=== PATIENT | male | born 1945 | race Caucasian/White ===

== ENCOUNTER 2024-01-16 05:49 | Day surgery (SDC) | payer BC, OTHER ==
[~2024-01-16] VITALS: Ht 175.3 cm; Wt 54.4 kg
[2024-01-16] MEDS ORDERED: INDOMETHACIN 50 MG SUPP.RECT RC ONE (06:45)
[2024-01-16 07:02] LABS: BASOPHILS % (AUTO) 1.1 % (0.0-2.0); EOSINOPHILS # (AUTO) 0.2 K/uL (0.0-0.4); EOSINOPHILS % (AUTO) 5.4 % (0.0-4.0); HEMATOCRIT 42.7 % (36-54); HEMOGLOBIN 14.3 g/dL (14.0-18.0); LYMPHOCYTES # (AUTO) 0.7 K/uL (1.0-5.5); LYMPHOCYTES % (AUTO) 16.7 % (20.5-51.5); MEAN CORPUSCULAR HEMOGLOBIN 32 pg (27-31); MEAN CORPUSCULAR HGB CONC 33 % (32-36); MEAN CORPUSCULAR VOLUME 94 fL (79.0-98.0); MONOCYTES # (AUTO) 0.3 K/uL (0.0-1.0); MONOCYTES % (AUTO) 7.7 % (1.7-9.3); NEUTROPHILS % (AUTO) 69.1 % (40.0-70.0); PLATELET COUNT (AUTO) 247 K/uL (130-430); RED BLOOD CELL COUNT(AUTO) 4.53 MIL/uL (4.2-6.2); RED CELL DISTRIBUTION WIDTH 13.4 % (9.0-15.0); WHITE BLOOD COUNT (AUTO) 4.3 K/uL (4.8-10.8)
[2024-01-16 07:21] LABS: ALANINE AMINOTRANSFERASE 35 U/L (12-78); ALBUMIN 3.7 g/dL (3.4-4.8); ANION GAP 10 (5-15); ASPARTATE AMINOTRANSFERASE 29 U/L (10-37); CALCIUM 9.3 mg/dL (8.4-11.0); CARBON DIOXIDE 26 mmol/L (23-29); CHLORIDE 108 mmol/L (98-107); CREATININE 1.07 mg/dL (0.55-1.30); GLUCOSE 100 mg/dL (74-106); POTASSIUM 4.3 mmol/L (3.5-5.1); SODIUM SERUM 144 mmol/L (136-145); TOTAL BILIRUBIN 0.7 mg/dL (0.0-1.0); UREA NITROGEN, BLOOD 6 mg/dL (8-21)
[2024-01-16 07:49] LABS: PROTHROMBIN TIME 10.5 SECS (9.5-12.5)
[2024-01-16] MEDS ORDERED: SUCCINYLCHOLINE CHLORIDE 20 MG/ML(QUELICIN) ONE (07:57)
[2024-01-16] MEDS ORDERED: SEVOFLURANE 15 MIN GAS INH ONE (07:57)
[2024-01-16] MEDS ORDERED: NEOSTIGMINE METHYLSULFATE 1 MG/ML, 10 ML VIAL ONE (07:57)
[2024-01-16] MEDS ORDERED: PROPOFOL 200MG/ 20ML VIAL (DIPRIVAN) IV ONE (07:57)
[2024-01-16] MEDS ORDERED: NS 1000 ML IV.SOLN IV ONE (07:57)
[2024-01-16] MEDS ORDERED: GLYCOPYRROLATE 0.2 MG/ML VIAL ONE (07:57)
[2024-01-16] MEDS ORDERED: ROCURONIUM BROMIDE 10 MG/ML (ZEMURON) ONE (07:57)
[2024-01-16] MEDS: INDOMETHACIN 50 MG SUPP.RECT RC ONE (08:13)
[2024-01-16] MEDS ORDERED: HYDROmorphone 1 MG/ML INJ. CARTRIDGE IVP PRN (08:45)
[2024-01-16] MEDS ORDERED: MIDAZOLAM HCL 5 MG/5 ML VIAL IVP PRN (08:45)
[2024-01-16] MEDS ORDERED: KETOROLAC TROMETHAMINE 30 MG VIAL IVP PRN (08:45)
[2024-01-16] MEDS ORDERED: METOCLOPRAMIDE HCL 10 MG/2 ML VIAL IVP PRN (08:45)
[2024-01-16] MEDS ORDERED: MORPHINE 4 MG INJ. 4 MG/ML VIAL IVP PRN (08:45)
[2024-01-16] MEDS ORDERED: ONDANSETRON HCL 4 MG/2 ML VIAL IVP PRN (08:45)
[2024-01-16 09:25] VITALS: O2SAT 98
[2024-01-16] MEDS: hydrALAZINE HCL 20 MG/ML VIAL ONE (09:30)
[2024-01-16 15:00] VITALS: BP_SYST 165; PULSE 56; RESP 20; TEMP 97.8
== END 2024-01-16 11:34 | disposition home or self-care (01) ==
LOC: SMU 05:49 → SDS 05:49
PROVIDERS: ATTEND Internal Medicine
DX: K80.50 Calculus of bile duct without cholangitis or cholecystitis without obstruction (principal); I12.9 Hypertensive chronic kidney disease with stage 1 through stage 4 chronic kidney disease, or unspecified chronic kidney disease; N18.1 Chronic kidney disease, stage 1; K21.9 Gastro-esophageal reflux disease without esophagitis; I25.2 Old myocardial infarction; E78.5 Hyperlipidemia, unspecified; M19.90 Unspecified osteoarthritis, unspecified site; Z90.49 Acquired absence of other specified parts of digestive tract; Z79.899 Other long term (current) drug therapy; Z98.890 Other specified postprocedural states; Z88.2 Allergy status to sulfonamides; Z85.21 Personal history of malignant neoplasm of larynx
CPT/HCPCS: 43262; 93005; 43264; 43275; 80053; 85025; 85610; 85730; 36415; 71045; G0378; J3490; J0360; J2704; J0330; Q9967; J7030; C1769; J2710; 76000

== ENCOUNTER 2024-01-18 15:09 | Inpatient (IN) | payer BC, OTHER ==
[~2024-01-18] VITALS: Ht 177.8 cm; Wt 77.1 kg
[2024-01-18 15:10] VITALS: BP_SYST 133; PULSE 105; RESP 20; TEMP 97.9; O2SAT 98
[2024-01-18] MEDS: NACL 0.9% 1,000 ML IV ONE ×2 (16:27→20:30)
[2024-01-18] MEDS: MORPHINE 4 MG INJ. 4 MG/ML VIAL IVP ONE (16:27)
[2024-01-18] MEDS: ONDANSETRON HCL 4 MG/2 ML VIAL IVP ONE (16:28)
[2024-01-18 17:00] LABS: BASOPHILS % (AUTO) 0.3 % (0.0-2.0); EOSINOPHILS # (AUTO) 0.1 K/uL (0.0-0.4); HEMATOCRIT 39.3 % (36-54); HEMOGLOBIN 13.8 g/dL (14.0-18.0); LYMPHOCYTES # (AUTO) 0.1 K/uL (1.0-5.5); LYMPHOCYTES % (AUTO) 1.5 % (20.5-51.5); MEAN CORPUSCULAR HEMOGLOBIN 33 pg (27-31); MEAN CORPUSCULAR HGB CONC 35 % (32-36); MEAN CORPUSCULAR VOLUME 94 fL (79.0-98.0); MONOCYTES # (AUTO) 0.1 K/uL (0.0-1.0); NEUTROPHILS # (AUTO) 6.9 K/uL (1.8-7.7); NEUTROPHILS % (AUTO) 95.2 % (40.0-70.0); RED BLOOD CELL COUNT(AUTO) 4.19 MIL/uL (4.2-6.2); RED CELL DISTRIBUTION WIDTH 14.2 % (9.0-15.0); WHITE BLOOD COUNT (AUTO) 7.3 K/uL (4.8-10.8)
[2024-01-18 17:08] LABS: INR 1.3 (0.80-1.20); PROTHROMBIN TIME 13.1 SECS (9.5-12.5)
[2024-01-18 17:10] LABS: ALANINE AMINOTRANSFERASE 78 U/L (12-78); ALBUMIN 2.8 g/dL (3.4-4.8); ANION GAP 15 (5-15); ASPARTATE AMINOTRANSFERASE 55 U/L (10-37); CALCIUM 8.8 mg/dL (8.4-11.0); CARBON DIOXIDE 20 mmol/L (23-29); CHLORIDE 104 mmol/L (98-107); GLUCOSE 95 mg/dL (74-106); POTASSIUM 3.6 mmol/L (3.5-5.1); SODIUM SERUM 139 mmol/L (136-145); TOTAL BILIRUBIN 6.8 mg/dL (0.0-1.0); TOTAL PROTEIN, SERUM 6.3 g/dL (6.4-8.3); UREA NITROGEN, BLOOD 38 mg/dL (8-21)
[2024-01-18 17:29] LABS: BILIRUBIN,DIRECT 5.9 mg/dL (0.0-0.3); LIPASE 42 U/L (16-77)
[2024-01-18 17:59] LABS: BILIRUBIN,URINE 2+ (NEGATIVE); CLARITY/URINE CLEAR (CLEAR); COLOR,URINE YELLOW (YELLOW); GLUCOSE,URINE TRACE (NEGATIVE); KETONES,URINE TRACE (NEGATIVE); LEUKOCYTE ESTERASE ,URINE NEGATIVE (NEGATIVE); NITRITE, URINE NEGATIVE (NEGATIVE); PROTEIN URINE 1+ (NEGATIVE); UROBILINOGEN,URINE 0.2 (0.2-1.0)
[2024-01-18 18:11] LABS: BLOOD, URINE TRACE (NEGATIVE)
[2024-01-18 19:12] LABS: BACTERIA,URINE FEW /HPF (None Seen); RBC,URINE 0-3 /HPF (0-3)
[2024-01-18 19:13] LABS: MUCUS,URINE None Seen /LPF (None Seen); OTHER CASTS, URINE WBC CASTS 1+ /LPF (None Seen)
[2024-01-18] MEDS ORDERED: PIPERACILLIN/TAZOBACTAM 3.375 GM/VIAL (ZOSYN) IV ONE (20:13)
[2024-01-18] MEDS: PIPERACILLIN/TAZO 3.375 GM in NS 50 ML IV ONE (20:15)
[2024-01-18] MEDS ORDERED: MORPHINE 2 MG/ML INJ. SYRINGE IVP PRN (21:00)
[2024-01-18] MEDS: metroNIDAZOLE 500 mg/NS 100 ML IV ONE (21:20)
[2024-01-18 21:22] LABS: PLATELET COUNT (AUTO) 92 K/uL (130-430)
[2024-01-18] MEDS ORDERED: OMEP20CA15 PO (21:25)
[2024-01-18] MEDS ORDERED: AMLO5TAB4 PO (21:29)
[2024-01-18] MEDS ORDERED: ATOR-449 PO (21:29)
[2024-01-18] MEDS ORDERED: BENA-6 PO (21:29)
[2024-01-18] MEDS ORDERED: DIPH25CA83 PO (21:29)
[2024-01-18] MEDS ORDERED: CLOP75TA32 PO (21:29)
[2024-01-18] MEDS: MORPHINE 4 MG INJ. 4 MG/ML VIAL IVP PRN (21:30)
[2024-01-18] MEDS ORDERED: GABA600T PO (21:44)
[2024-01-18] MEDS ORDERED: TAMS0.4C96 PO (21:45)
[2024-01-18] MEDS: D5/0.45 NS 1,000 ML IV SCH (22:24)
[2024-01-18 23:04] VITALS: BP_SYST 107; PULSE 67; RESP 16; TEMP 97.8; O2SAT 96
[2024-01-19] VITALS: BP_SYST 110; PULSE 68; RESP 16; TEMP 98.3; O2SAT 96
[2024-01-19 08:42] VITALS: BP_SYST 114; PULSE 78; RESP 16; TEMP 99; O2SAT 93
[2024-01-19] MEDS ORDERED: MORPHINE 4 MG INJ. 4 MG/ML VIAL IVP PRN (11:30)
[2024-01-19] MEDS ORDERED: MORPHINE 2 MG/ML INJ. SYRINGE IVP PRN (11:30)
[2024-01-19] MEDS ORDERED: NALOXONE HCL 0.4 MG/ML AMP (NARCAN) IVP PRN (11:30)
[2024-01-19 12:00] VITALS: BP_SYST 113; PULSE 68; RESP 18; TEMP 99; O2SAT 95
[2024-01-19 16:00] VITALS: BP_SYST 131; PULSE 73; RESP 16; TEMP 99.1; O2SAT 98
[2024-01-19 20:00] VITALS: BP_SYST 118; PULSE 64; RESP 16; TEMP 98.7; O2SAT 95
[2024-01-19 23:16] LABS: BILIRUBIN,URINE 3+ (NEGATIVE); GLUCOSE,URINE NEGATIVE (NEGATIVE); KETONES,URINE NEGATIVE (NEGATIVE); LEUKOCYTE ESTERASE ,URINE NEGATIVE (NEGATIVE); NITRITE, URINE NEGATIVE (NEGATIVE); PROTEIN URINE 2+ (NEGATIVE); UROBILINOGEN,URINE 0.2 (0.2-1.0)
[2024-01-19 23:40] LABS: BLOOD, URINE TRACE (NEGATIVE); CLARITY/URINE HAZY (CLEAR); COLOR,URINE YELLOW (YELLOW)
[2024-01-19 23:42] LABS: BACTERIA,URINE RARE /HPF (None Seen); WBC,URINE 0-3 /HPF (0-3)
[2024-01-20 00:04] VITALS: BP_SYST 137; PULSE 88; RESP 18; TEMP 97.6; O2SAT 95
[2024-01-20 01:29] LABS: BASOPHILS % (AUTO) 0.3 % (0.0-2.0); EOSINOPHILS # (AUTO) 0.1 K/uL (0.0-0.4); EOSINOPHILS % (AUTO) 2.3 % (0.0-4.0); HEMATOCRIT 35.6 % (36-54); HEMOGLOBIN 12.6 g/dL (14.0-18.0); LYMPHOCYTES # (AUTO) 0.3 K/uL (1.0-5.5); MEAN CORPUSCULAR HEMOGLOBIN 33 pg (27-31); MEAN CORPUSCULAR HGB CONC 35 % (32-36); MEAN CORPUSCULAR VOLUME 93 fL (79.0-98.0); MONOCYTES # (AUTO) 0.5 K/uL (0.0-1.0); MONOCYTES % (AUTO) 8.2 % (1.7-9.3); NEUTROPHILS # (AUTO) 5.3 K/uL (1.8-7.7); NEUTROPHILS % (AUTO) 84.2 % (40.0-70.0); RED BLOOD CELL COUNT(AUTO) 3.84 MIL/uL (4.2-6.2); RED CELL DISTRIBUTION WIDTH 14.5 % (9.0-15.0); WHITE BLOOD COUNT (AUTO) 6.3 K/uL (4.8-10.8)
[2024-01-20 01:36] LABS: PLATELET COUNT (AUTO) 46 K/uL (130-430)
[2024-01-20 01:50] LABS: ALANINE AMINOTRANSFERASE 53 U/L (12-78); ALBUMIN 2.4 g/dL (3.4-4.8); ANION GAP 8 (5-15); ASPARTATE AMINOTRANSFERASE 34 U/L (10-37); CALCIUM 8.4 mg/dL (8.4-11.0); CARBON DIOXIDE 26 mmol/L (23-29); CHLORIDE 109 mmol/L (98-107); CREATININE 1.02 mg/dL (0.55-1.30); GLUCOSE 105 mg/dL (74-106); PHOSPHORUS 1.6 mg/dL (2.7-4.5); POTASSIUM 3.7 mmol/L (3.5-5.1); SODIUM SERUM 143 mmol/L (136-145); TOTAL BILIRUBIN 8.5 mg/dL (0.0-1.0); TOTAL PROTEIN, SERUM 5.6 g/dL (6.4-8.3); UREA NITROGEN, BLOOD 23 mg/dL (8-21)
[2024-01-20 08:00] VITALS: BP_SYST 155; PULSE 61; RESP 16; RESP 18; TEMP 98.3; O2SAT 99
[2024-01-20 13:36] VITALS: BP_SYST 155; PULSE 59; RESP 20; TEMP 98.3
[2024-01-20 16:35] VITALS: BP_SYST 153; PULSE 67; RESP 18; TEMP 98.2; O2SAT 95
[2024-01-20] MEDS ORDERED: VANCOMYCIN HCL 1,500 MG in NS 250 ML IV SCH (18:30)
[2024-01-20] MEDS: D5NS 1,000 ML IV SCH (20:06)
[2024-01-20 20:15] LABS: PROTHROMBIN TIME 10.8 SECS (9.5-12.5)
[2024-01-20 21:55] VITALS: BP_SYST 158; PULSE 70; RESP 18; TEMP 97.9; O2SAT 95
[2024-01-20] MEDS: VANCOMYCIN HCL 1,000 MG in NS 250 ML IV SCH (21:55)
[2024-01-20] MEDS: PIPERACILLIN/TAZO 3.375 GM in D5W 50 ML IV SCH (23:23)
[2024-01-21] VITALS (7 sets, daily range): BP systolic 90–186; PULSE 62–76; RESP 15–20; TEMP 97.1–97.9; O2SAT 94–98
[2024-01-21 06:55] LABS: BASOPHILS % (AUTO) 0.6 % (0.0-2.0); EOSINOPHILS # (AUTO) 0.3 K/uL (0.0-0.4); EOSINOPHILS % (AUTO) 4.7 % (0.0-4.0); HEMATOCRIT 39.6 % (36-54); HEMOGLOBIN 13.4 g/dL (14.0-18.0); LYMPHOCYTES # (AUTO) 0.5 K/uL (1.0-5.5); LYMPHOCYTES % (AUTO) 7.6 % (20.5-51.5); MEAN CORPUSCULAR HEMOGLOBIN 32 pg (27-31); MEAN CORPUSCULAR HGB CONC 34 % (32-36); MEAN CORPUSCULAR VOLUME 94 fL (79.0-98.0); MONOCYTES # (AUTO) 0.7 K/uL (0.0-1.0); MONOCYTES % (AUTO) 11.6 % (1.7-9.3); NEUTROPHILS # (AUTO) 4.7 K/uL (1.8-7.7); NEUTROPHILS % (AUTO) 75.5 % (40.0-70.0); PLATELET COUNT (AUTO) 76 K/uL (130-430); RED BLOOD CELL COUNT(AUTO) 4.23 MIL/uL (4.2-6.2); RED CELL DISTRIBUTION WIDTH 14.3 % (9.0-15.0); WHITE BLOOD COUNT (AUTO) 6.2 K/uL (4.8-10.8)
[2024-01-21 07:30] LABS: PROTHROMBIN TIME 10.5 SECS (9.5-12.5)
[2024-01-21 07:34] LABS: ALANINE AMINOTRANSFERASE 44 U/L (12-78); ALBUMIN 2.5 g/dL (3.4-4.8); ANION GAP 10 (5-15); ASPARTATE AMINOTRANSFERASE 26 U/L (10-37); CALCIUM 8.7 mg/dL (8.4-11.0); CARBON DIOXIDE 25 mmol/L (23-29); CHLORIDE 107 mmol/L (98-107); CREATININE 0.73 mg/dL (0.55-1.30); GLUCOSE 96 mg/dL (74-106); LIPASE 167 U/L (16-77); POTASSIUM 3.5 mmol/L (3.5-5.1); SODIUM SERUM 142 mmol/L (136-145); UREA NITROGEN, BLOOD 15 mg/dL (8-21)
[2024-01-21] MEDS: INDOMETHACIN 50 MG SUPP.RECT RC ONE (08:44)
[2024-01-21] MEDS: hydrALAZINE HCL 25 MG TABLET PO ONE (11:45)
[2024-01-21] MEDS: hydrALAZINE HCL 25 MG TABLET PO SCH (15:45)
[2024-01-22] VITALS (10 sets, daily range): BP systolic 142–168; PULSE 61–68; RESP 15–20; TEMP 97.1–98.7; O2SAT 96–99
[2024-01-22] MEDS: LORazepam 2 MG/ML VIAL IVP PRN (03:25)
[2024-01-22 12:54] LABS: TOTAL IRON BIND. CAPACITY 214 ug/dL (250-450)
[2024-01-22 12:57] LABS: BASOPHILS % (AUTO) 0.9 % (0.0-2.0); EOSINOPHILS # (AUTO) 0.2 K/uL (0.0-0.4); EOSINOPHILS % (AUTO) 4.7 % (0.0-4.0); HEMATOCRIT 38.3 % (36-54); HEMOGLOBIN 12.8 g/dL (14.0-18.0); LYMPHOCYTES # (AUTO) 0.6 K/uL (1.0-5.5); LYMPHOCYTES % (AUTO) 15.3 % (20.5-51.5); MEAN CORPUSCULAR HEMOGLOBIN 32 pg (27-31); MEAN CORPUSCULAR HGB CONC 33 % (32-36); MEAN CORPUSCULAR VOLUME 94 fL (79.0-98.0); MONOCYTES # (AUTO) 0.6 K/uL (0.0-1.0); MONOCYTES % (AUTO) 17.2 % (1.7-9.3); NEUTROPHILS # (AUTO) 2.3 K/uL (1.8-7.7); NEUTROPHILS % (AUTO) 61.9 % (40.0-70.0); PLATELET COUNT (AUTO) 90 K/uL (130-430); RED BLOOD CELL COUNT(AUTO) 4.06 MIL/uL (4.2-6.2); RED CELL DISTRIBUTION WIDTH 14.6 % (9.0-15.0)
[2024-01-22 12:58] LABS: ALANINE AMINOTRANSFERASE 34 U/L (12-78); ALBUMIN 2.2 g/dL (3.4-4.8); ANION GAP 7 (5-15); ASPARTATE AMINOTRANSFERASE 23 U/L (10-37); CALCIUM 8.3 mg/dL (8.4-11.0); CARBON DIOXIDE 28 mmol/L (23-29); CHLORIDE 106 mmol/L (98-107); CREATININE 0.85 mg/dL (0.55-1.30); GLUCOSE 131 mg/dL (74-106); SODIUM SERUM 141 mmol/L (136-145); TOTAL BILIRUBIN 2.7 mg/dL (0.0-1.0); TOTAL PROTEIN, SERUM 5.7 g/dL (6.4-8.3); UREA NITROGEN, BLOOD 14 mg/dL (8-21)
[2024-01-22 12:59] LABS: WHITE BLOOD COUNT (AUTO) 3.7 K/uL (4.8-10.8)
[2024-01-22 13:03] LABS: POTASSIUM 2.8 mmol/L (3.5-5.1)
[2024-01-22 13:40] LABS: ALANINE AMINOTRANSFERASE 32 U/L (12-78); ALBUMIN 2.3 g/dL (3.4-4.8); ANION GAP 7 (5-15); ASPARTATE AMINOTRANSFERASE 22 U/L (10-37); CALCIUM 8.4 mg/dL (8.4-11.0); CARBON DIOXIDE 28 mmol/L (23-29); CHLORIDE 107 mmol/L (98-107); CREATININE 0.87 mg/dL (0.55-1.30); GLUCOSE 130 mg/dL (74-106); SODIUM SERUM 142 mmol/L (136-145); TOTAL BILIRUBIN 2.7 mg/dL (0.0-1.0); TOTAL PROTEIN, SERUM 5.8 g/dL (6.4-8.3); UREA NITROGEN, BLOOD 14 mg/dL (8-21)
[2024-01-22 13:43] LABS: POTASSIUM 2.8 mmol/L (3.5-5.1)
[2024-01-22] MEDS: POTASSIUM CHLORIDE 20 MEQ/PKT PACKET PO ONE (14:39)
[2024-01-22] MEDS: MINERAL OIL 30 ML UDC PO SCH (21:00)
[2024-01-23 05:00] VITALS: BP_SYST 165; PULSE 66; RESP 20; TEMP 98.2; O2SAT 97
[2024-01-23 08:00] VITALS: O2SAT 97
[2024-01-23 08:17] LABS: BASOPHILS % (AUTO) 0.3 % (0.0-2.0); EOSINOPHILS # (AUTO) 0.1 K/uL (0.0-0.4); HEMATOCRIT 42.2 % (36-54); HEMOGLOBIN 14.1 g/dL (14.0-18.0); LYMPHOCYTES # (AUTO) 0.5 K/uL (1.0-5.5); LYMPHOCYTES % (AUTO) 14.4 % (20.5-51.5); MEAN CORPUSCULAR HEMOGLOBIN 31 pg (27-31); MEAN CORPUSCULAR HGB CONC 33 % (32-36); MEAN CORPUSCULAR VOLUME 94 fL (79.0-98.0); MONOCYTES # (AUTO) 0.5 K/uL (0.0-1.0); MONOCYTES % (AUTO) 12.9 % (1.7-9.3); NEUTROPHILS # (AUTO) 2.5 K/uL (1.8-7.7); NEUTROPHILS % (AUTO) 68.4 % (40.0-70.0); PLATELET COUNT (AUTO) 128 K/uL (130-430); RED BLOOD CELL COUNT(AUTO) 4.48 MIL/uL (4.2-6.2); RED CELL DISTRIBUTION WIDTH 14.5 % (9.0-15.0); WHITE BLOOD COUNT (AUTO) 3.6 K/uL (4.8-10.8)
[2024-01-23 08:29] LABS: ANION GAP 10 (5-15); CALCIUM 8.6 mg/dL (8.4-11.0); CARBON DIOXIDE 25 mmol/L (23-29); CHLORIDE 108 mmol/L (98-107); CREATININE 0.81 mg/dL (0.55-1.30); GLUCOSE 111 mg/dL (74-106); POTASSIUM 3.1 mmol/L (3.5-5.1); SODIUM SERUM 143 mmol/L (136-145); UREA NITROGEN, BLOOD 10 mg/dL (8-21)
[2024-01-23 12:13] VITALS: BP_SYST 125; PULSE 65; RESP 20; TEMP 98.4; O2SAT 98
[2024-01-23] MEDS: ERTAPENEM SODIUM 1 GM in NS 50 ML IV SCH (12:51)
[2024-01-23] MEDS: POTASSIUM CHLORIDE 40 MEQ in NS 250 ML IV ONE (15:39)
[2024-01-23 16:37] VITALS: BP_SYST 154; PULSE 64; RESP 18; TEMP 98.5; O2SAT 98
[2024-01-23 20:30] VITALS: BP_SYST 150; PULSE 61; RESP 20; TEMP 98; O2SAT 96
[2024-01-23 21:00] VITALS: O2SAT 96
[2024-01-24 08:00] VITALS: BP_SYST 168; PULSE 63; RESP 16; TEMP 97.4; O2SAT 97
[2024-01-24 08:35] LABS: BASOPHILS # (AUTO) 0.1 K/uL (0.0-0.2); BASOPHILS % (AUTO) 0.9 % (0.0-2.0); EOSINOPHILS # (AUTO) 0.2 K/uL (0.0-0.4); EOSINOPHILS % (AUTO) 3.3 % (0.0-4.0); HEMATOCRIT 41.2 % (36-54); HEMOGLOBIN 14.1 g/dL (14.0-18.0); LYMPHOCYTES # (AUTO) 0.8 K/uL (1.0-5.5); LYMPHOCYTES % (AUTO) 14.2 % (20.5-51.5); MEAN CORPUSCULAR HEMOGLOBIN 32 pg (27-31); MEAN CORPUSCULAR HGB CONC 34 % (32-36); MEAN CORPUSCULAR VOLUME 94 fL (79.0-98.0); MONOCYTES # (AUTO) 0.6 K/uL (0.0-1.0); MONOCYTES % (AUTO) 10.2 % (1.7-9.3); NEUTROPHILS # (AUTO) 4.1 K/uL (1.8-7.7); NEUTROPHILS % (AUTO) 71.4 % (40.0-70.0); PLATELET COUNT (AUTO) 195 K/uL (130-430); RED BLOOD CELL COUNT(AUTO) 4.39 MIL/uL (4.2-6.2); RED CELL DISTRIBUTION WIDTH 14.8 % (9.0-15.0); WHITE BLOOD COUNT (AUTO) 5.8 K/uL (4.8-10.8)
[2024-01-24 08:40] VITALS: O2SAT 97
[2024-01-24 08:43] LABS: ERYTHROCYTE SEDIMENTATION RATE 52 MM/HR (0-15)
[2024-01-24 09:04] LABS: ALANINE AMINOTRANSFERASE 40 U/L (12-78); ALBUMIN 2.5 g/dL (3.4-4.8); ANION GAP 11 (5-15); ASPARTATE AMINOTRANSFERASE 32 U/L (10-37); CALCIUM 8.5 mg/dL (8.4-11.0); CARBON DIOXIDE 22 mmol/L (23-29); CHLORIDE 109 mmol/L (98-107); CREATININE 0.77 mg/dL (0.55-1.30); GLUCOSE 117 mg/dL (74-106); POTASSIUM 3.5 mmol/L (3.5-5.1); SODIUM SERUM 142 mmol/L (136-145); TOTAL BILIRUBIN 2.3 mg/dL (0.0-1.0); TOTAL PROTEIN, SERUM 6.2 g/dL (6.4-8.3); UREA NITROGEN, BLOOD 6 mg/dL (8-21)
[2024-01-24 12:45] VITALS: BP_SYST 159; PULSE 67; RESP 15; TEMP 97.9; O2SAT 99
[2024-01-24] MEDS: ONDANSETRON HCL 4 MG/2 ML VIAL IVP PRN (13:25)
[2024-01-24] MEDS ORDERED: HYDR25TA86 PO (14:34)
[2024-01-24] MEDS ORDERED: ERTA1VIA3 INJ (14:34)
[2024-01-24 17:19] VITALS: BP_SYST 182; PULSE 66; RESP 16; TEMP 97.5; O2SAT 97
[2024-01-24 17:54] VITALS: BP_SYST 168; PULSE 60; RESP 16; TEMP 97.4; O2SAT 99
== END 2024-01-24 18:25 | disposition home health service (06) | DRG 871 ==
LOC: SED 15:09 → SMU 20:56 → STU 01-20 22:58 → SMU 01-22 08:39
PROVIDERS: ADMIT Preventive Medicine Preventive Medicine/Occupational Environmental Medicine; ATTEND Specialist
DX: A40.8 Other streptococcal sepsis (principal); N17.0 Acute kidney failure with tubular necrosis; E44.0 Moderate protein-calorie malnutrition; K80.42 Calculus of bile duct with acute cholecystitis without obstruction; I10 Essential (primary) hypertension; E80.6 Other disorders of bilirubin metabolism; K21.9 Gastro-esophageal reflux disease without esophagitis; D64.9 Anemia, unspecified; R74.01 Elevation of levels of liver transaminase levels; D69.6 Thrombocytopenia, unspecified; Z90.49 Acquired absence of other specified parts of digestive tract; Z79.899 Other long term (current) drug therapy; Z88.8 Allergy status to other drugs, medicaments and biological substances; Z68.24 Body mass index [BMI] 24.0-24.9, adult
CPT/HCPCS: 36415; 71045; 74181; 80048; 80053; 80076; 81000; 81001; 81015; 82140; 83540; 83550; 83605; 83690; 83735; 84100; 84484; 85025; 85379; 85384; 85610; 85651; 85730; 86886; 86900; 86901; 87040; 87081; 87086; 93005; 99285; G0378; J0696; J1335; J2060; J2270; J2405; J2543; J3370; J3480; J3490; J7050; J7060; Q9967